=== PATIENT | male | born 1960 | race Caucasian/White ===

== ENCOUNTER 2024-02-29 06:09 | Outpatient (CLI) | payer BC, SELFPAY ==
--- NOTE | 2024-02-29 07:47 | P.ANES_ITS ---
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
--- NOTE | 2024-02-29 07:47 | W.ANESCHARGE ---
Anesthesia Charges Start Date/Time Anesthesia Start Date: 02/29/24 Anesthesia Start Time: 07:18 Stop Date/Time Anesthesia Stop Date: 02/29/24 Anesthesia Stop Time: 07:45 Coding CPT Codes CPT Codes: FLORS LWR INTST NDSC NOS - [id number] ([id number]) P2 - PATIENT W/MILD SYST DISEASE, QZ - WIRE REPAIRER SVC W/O BRACER BY
== END 2024-02-29 06:10 | disposition home or self-care (01) ==
PROVIDERS: PCP Surgery; Visit Provider Internal Medicine Gastroenterology
DX: Z12.11 Encounter for screening for malignant neoplasm of colon (principal); D12.0 Benign neoplasm of cecum; D12.2 Benign neoplasm of ascending colon; D12.8 Benign neoplasm of rectum; K57.30 Diverticulosis of large intestine without perforation or abscess without bleeding; Z86.0101 Personal history of adenomatous and serrated colon polyps
CPT/HCPCS: 00811; 45380; 88305; J2704